=== PATIENT | male | born 1985 | race Caucasian/White ===

== ENCOUNTER 2021-05-11 09:04 | Day surgery (SDC) | payer OTHER ==
[~2021-05-11] VITALS: Ht 188 cm; Wt 90.3 kg
[2021-05-11 09:38] VITALS: BP 124/88; PULSE 81; TEMP 98.2
[2021-05-11 11:20] VITALS: BP 119/76; PULSE 76; TEMP 98
--- NOTE | 2021-05-11 11:20 | NUR ---
Patient arrives to [facility] via cart, accompanied by [facility] RN Janene. He is alert and oriented. He ambulates to the chair in his room with steady giat. Monitoring is applied - VSS and WNL on room air. PIV to TKO. He denies pain or nausea. He is offered and receives water to drink.
[2021-05-11 11:30] VITALS: BP 117/81; PULSE 76
--- NOTE | 2021-05-11 11:39 | NUR ---
Dr. Breaux comes to the bedside and talks with the patient at this time.
[2021-05-11 11:45] VITALS: BP 116/82; PULSE 67
--- NOTE | 2021-05-11 11:58 | NUR ---
Patient tolerated PO well. Patient has met discharge criteria. PIV is removed with catheter intact and hemostasis achieved. Discharge instructions are discussed. He denies any questions and verbalizes understanding. He changes to his clothing independently. He is escorted to the exit via wheelchair by REECE Gómez. He is discharged to the care of his brother, Dyllan, who drives him home in a private vehicle at 1158.
== END 2021-05-11 11:58 | disposition home or self-care (01) ==
LOC: SDCO 09:04
DX: Z12.11 Encounter for screening for malignant neoplasm of colon (principal); K21.9 Gastro-esophageal reflux disease without esophagitis; K29.30 Chronic superficial gastritis without bleeding; F17.200 Nicotine dependence, unspecified, uncomplicated; Z20.822 Contact with and (suspected) exposure to COVID-19; Z90.89 Acquired absence of other organs; Z83.71 Family history of colonic polyps; Z80.8 Family history of malignant neoplasm of other organs or systems; Z82.49 Family history of ischemic heart disease and other diseases of the circulatory system
CPT/HCPCS: J2704; J7030